=== PATIENT | male | born 1950 | race Caucasian/White ===

== ENCOUNTER 2018-02-02 09:27 | Emergency (ER) | payer MEDICARE, BC ==
[~2018-02-02] VITALS: Ht 175.3 cm; Wt 75.0 kg
[2018-02-02 09:36] VITALS: Ht 175.3 cm; Wt 75.0 kg
[2018-02-02] MEDS ORDERED: IMURAN50 MG PO (09:37)
[2018-02-02] MEDS ORDERED: BACTRIM DS1 TAB PO (09:37)
[2018-02-02] MEDS ORDERED: SYNTHROID50 MCG PO (09:37)
[2018-02-02] MEDS ORDERED: ZOCOR20 MG PO (09:38)
[2018-02-02] MEDS ORDERED: FENOFIBRATE134 MG PO (09:38)
[2018-02-02] MEDS ORDERED: COUMADIN3 MG PO (09:38)
[2018-02-02] MEDS ORDERED: AMBIEN10 MG PO (09:38)
[2018-02-02 11:14] VITALS: BP 148/98
== END 2018-02-02 11:14 | disposition home or self-care (01) ==
LOC: D.ER 09:27
DX: M54.6 Pain in thoracic spine (principal); A50.02 Early congenital syphilitic osteochondropathy